=== PATIENT | female | born 1940 | race Caucasian/White ===

== ENCOUNTER → 2021-10-27 | Outpatient (CLI) | payer BC ==
--- NOTE | 2021-10-27 11:43 | RAD ---
XR EXAM OF ANKLE_LEFT 3V History: Pain after fall. Comparison: None. Findings: Decreased osseous mineralization. Irregular lucencies at the medial and lateral aspect of the calcane us. The ankle mortise and talar dome are intact. Mild foot and ankle soft tissue swelling. Impression: 1. Findings concerning for medial and lateral calcaneal avulsion fractures. Alternately this may rep resent artifact of trabecular rarefaction in the setting of decreased osseous mineralization. Electronically signed by: Edd Brandt MD (10/27/2021 10:39 AM) [id number]
== END ==
LOC: RAD 09:40
PROVIDERS: ATTEND Nurse Practitioner Family
DX: M25.572 Pain in left ankle and joints of left foot (principal); M79.89 Other specified soft tissue disorders; X58.XXXA Exposure to other specified factors, initial encounter; Y93.89 Activity, other specified; Y92.89 Other specified places as the place of occurrence of the external cause; Y99.9 Unspecified external cause status
CPT/HCPCS: 73610